=== PATIENT | male | born 1950 | race Caucasian/White ===

== ENCOUNTER 2017-04-24 08:50 | Outpatient (CLI) | payer BC, MEDICARE ==
[2017-04-24 12:26] LABS: #Eosinphils 0.3 thou/uL (0.0-0.7); #Lymphocytes 1.4 thou/uL (1.20-3.40); #Monocytes 0.4 thou/uL (0.11-0.59); #Neutrophils 3.3 thou/uL (1.40-6.50); %Basophils 0.8 % (0.0-1.0); %Eosinophils 5.3 % (0.0-10.0); %Lymphocytes 25.5 % (21.0-51.0); %Monocytes 8.1 % (0.0-10.0); %Neutrophils 60.3 % (42.0-75.0); Hemoglobin 15.7 g/dL (14.0-18.0); Mean Corpuscular Hemoglobin 32.1 pg (27.0-31.0); Mean Corpuscular Volume 94.2 fl (80.0-94.0); Mean Platelet Volume 6.9 fL (7.4-10.4); Platelet Count 226 thou/uL (130-400); RBC Distribution Width 11.3 % (11.5-14.5); Red Blood Cell (RBC) Count 4.91 mill/uL (4.70-6.10); White Blood Cell (WBC) Count 5.4 thou/uL (4.8-10.8)
[2017-04-24 12:40] LABS: Bilirubin Negative (Negative); Blood, Urine Negative (Negative); Clarity Clear (Clear); Glucose, Urine (Dipstick) Negative (Negative); Leukocyte Negative (Negative); Nitrite Negative (Negative); Protein, Urine (Dipstick) Negative (Neg-Trace); Urobilinogen 0.2 mg/dL (0.2-1.0)
[2017-04-24 12:58] LABS: ALT (SGPT) 28 U/L (8-55); AST (SGOT) 26 U/L (5-34); Albumin 4.4 g/dL (3.4-4.8); Alkaline Phosphatase 87 U/L (40-150); Anion Gap 17 mmol/L (10-20); BUN (Urea Nitrogen) 12 mg/dL (8.4-25.7); Bilirubin, Total 0.6 mg/dL (0.2-1.2); Calc. Creatinine Clearance 0 mL/min (70-130); Calcium 8.9 mg/dL (7.8-10.44); Carbon Dioxide 22 mmol/L (23-31); Cardiac Risk 4.1 (Less than 4.5); Chloride 105 mmol/L (98-107); Cholesterol 227 mg/dl (< 200 Desired); Estimated GFR-MDRD 79; Globulin 2.9 g/dL (2.4-3.5); Glucose 116 mg/dL (80-115); HDL Cholesterol 56 mg/dL (>60 Neg Risk); LDL Cholesterol, Calculated 155 mg/dL; Potassium 4.1 mmol/L (3.5-5.1); Protein, Total 7.3 g/dL (5.8-8.1); Sodium 140 mmol/L (136-145); Triglycerides 81 mg/dL (Less than 150)
[2017-04-24 13:03] LABS: Hemoglobin A1c 6.1 % (4.0-6.0)
== END 2017-04-24 08:51 | disposition home or self-care (01) ==
LOC: NAVSJIPCSP 08:50
DX: Z12.5 Encounter for screening for malignant neoplasm of prostate (principal); E78.2 Mixed hyperlipidemia; I10 Essential (primary) hypertension; R73.01 Impaired fasting glucose
CPT/HCPCS: 36415; 80053; 80061; 81003; 83036; 85025; G0103

== ENCOUNTER 2017-10-22 09:05 | Outpatient (CLI) | payer MEDICARE ==
--- NOTE | 2017-10-22 12:50 | ULT ---
RIGHT LOWER EXTREMITY VENOUS DUPLEX SONOGRAM: HISTORY: Right leg pain and edema. FINDINGS: Reactive appearing lymph nodes are present at the right groin. the right common femoral vein and gre ater saphenous junction were evaluated, along with the femoral, deep femoral, popliteal, and posterio r tibial veins. Within the deep venous structures, good color and spectral Doppler flow were present . At the level of the foot and lower calf, thrombus and noncompressibility involve the saphenous vein, a superficial venous structure. Within the posterior tibial vein, arterial waveforms are demonstrated, with apparent anastomosis to t he adjacent posterior tibial artery, at two levels. IMPRESSION: 1. Superficial venous thrombus of the lower leg and foot, within the saphenous vein. No evidence of deep venous thrombus. 2. Arterial flow within the posterior tibial vein. Cause for arteriovenous fistula is not apparent. In the absence of surgical history, please consider vascular surgical evaluation. POS: [facility]
== END 2017-10-22 09:06 | disposition home or self-care (01) ==
LOC: NAV ULT 09:05
PROVIDERS: ATTEND Family Medicine
DX: R60.0 Localized edema (principal); I82.811 Embolism and thrombosis of superficial veins of right lower extremity

== ENCOUNTER 2021-03-23 22:38 | Emergency (ER) | payer MEDICARE ==
[2021-03-23] MEDS ORDERED: Boostrix 0.5 ML (Tdap) VIAL ONE (23:05)
[2021-03-23] MEDS ORDERED: Lidocaine 1% w/Epinephrine 1:100K 20 ML VIAL ONE (23:05)
== END 2021-03-23 23:58 | disposition home or self-care (01) ==
LOC: NAV ERS 22:38
DX: S01.01XA Laceration without foreign body of scalp, initial encounter (principal); I10 Essential (primary) hypertension; Z23 Encounter for immunization; Z79.899 Other long term (current) drug therapy; W19.XXXA Unspecified fall, initial encounter
CPT/HCPCS: 12002; 70450; 72125; 90471; 90715